=== PATIENT | male | born 2000 | race Caucasian/White ===

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

== ENCOUNTER → 2019-01-24 | Outpatient (CLI) | payer BC, SELFPAY ==
[2019-01-24 20:03] LABS: M R Staph aureus DNA By PCR Negative (Negative)
[2019-01-24 20:04] LABS: Probe Check PASS; Specimen Processing Control PASS; Staph aureus DNA By PCR POSITIVE (Negative)
== END | disposition home or self-care (01) ==
PROVIDERS: Referring Provider Podiatrist; Visit Provider Podiatrist
DX: L60.0 Ingrowing nail (principal)
CPT/HCPCS: 87070; 87075; 87077; 87186; 87205; 87640

== ENCOUNTER 2023-07-28 21:24 | Emergency (ER) | payer OTHER, SELFPAY ==
[2023-07-28 21:25] VITALS: BP 140/90; PULSE 100; RESP 18; TEMP 36.8; O2SAT 93; BMI 35.9
--- NOTE | 2023-07-28 21:32 | RAD_ITS ---
STUDY: X-RAY CHEST REASON FOR EXAM: Male, 22 years old. SOB TECHNIQUE: Single AP portable view of the chest. COMPARISON: None. FINDINGS: The lungs are clear and expanded. There is no demonstrated pleural abnormality. Normal size heart. Normal mediastinum and cintia. Normal visualized pulmonary arteries. Normal visualized aortic arch and descending thoracic aorta. Normal visualized thoracic spine. Normal visualized ribs, clavicles, and shoulders. There is no demonstrated abnormality of the visualized soft tissue structures of the upper abdomen. RAD/Chest 1 View (Portable) IMPRESSION: Normal x-ray examination of the chest. Electronically Signed: Parul Mcnally MD at 22:10 [facility] ,
[2023-07-28 21:51] VITALS: RESP 16; O2SAT 98
--- OUTSIDE RECORDS SUMMARY | 2023-07-28 22:03 | XMS RPT_ITS | CCD ---
Author Name Unknown Address [address] [place] [id number] Organization [facility] Care Team Providers Care Insurance Sales Agent Name Role Phone Unavailable Primary Care Provider Unavailabl e Allergies Allergy Classification Reported Allergen(s) Allergy Type Date of Onset Reaction(s) Facility (1 source) Amoxicillin Drug Allergy 04-25-2021 Rash [facility] Work Phone: Medications Completed/Discontinued Medications Medication Drug Class(es) Dates Sig (Normalized) Sig (Original) loratadine 10 mg oral tablet (1 source) take 1 tablet by th once daily loratadine (CLARITIN) 10 mg tablet Take 10 mg by mouth once daily. 0 Active Problems Problem Classification Problem Date Documented Da te Episodic/Chronic Nausea and vomiting (1 source) Diarrhea and vomiting; Translations: [Vomiting, unspecified] Episodic Results Test Name Value Interpretation Reference Range Facil ity Vital Signs Date Time Vital Sign Value Performing Clinician Linette burton 04-25-2021 12:53-0400 Body temperature 96.91 [degF] Praneeth Campos APRN.TEMPLATE REPRODUCTION TECHNICIAN Work Phone: [facility] 04-25-2021 12:53-0400 Body weight 100.7 kg Praneeth Campos APRN.TEMPLATE REPRODUCTION TECHNICIAN Work Phone: [facility] 04-25-2021 12:53-0400 Diastolic blood pressure 66 mm[Hg] Praneeth Campos APRN.TEMPLATE REPRODUCTION TECHNICIAN Work Phone: [facility] 04-25-2021 12:53-0400 Heart rate 90 /min Praneeth Campos APRN.TEMPLATE REPRODUCTION TECHNICIAN Work Phone: [facility] 04-25-2021 12:53-0400 Respiratory rate 18 /min Praneeth Campos APRN.TEMPLATE REPRODUCTION TECHNICIAN Work Phone: [facility] 04-25-2021 12:53-0400 SaO2% (BldA) [Mass fraction] 97 % Praneeth Campos TYLER Work Phone: [facility] 04-25-2021 12:53-0400 Systolic blood pressure 102 mm[Hg] Praneeht Campos TYLER Work Phone: [facility] Encounters Encounter Date Encounter Type Care Provider Facility Start: 04-25-2021 End: 04-25-2021 Patient encounter procedure Praneeth Campos TYLER Work Phone: [facility] Plan of Treatment Date Care Activity Detail Author Start: 03-11-2021 Influenza vaccination INFLUENZA (#1) [facility] Start: 11-18-2018 Urine microalbumin profile DTAP,TDAP ,TD (1 - Tdap) [facility] Start: 11-18-2017 HEPATITIS C SCREENING HEPATITIS C SC REENING [facility] Start: 11-18-2017 HIV SCREENING HIV SCREENING [facility] Start: 11-18-2013 PEDS TO ADULT TRANSI TION ANNUAL ASSESSMENT PEDS TO ADULT TRANSITION ANNUAL ASSESSMENT [facility] Start: 2011 Adult depression scr eening assessment DEPRESSION SCREENING [facility] Start: 2011 COVID-19 VACCINE (1) COVID-19 VACCIN E (1) [facility] Start: 2011 PEDS TO ADULT TRANSI TION INITIAL DISCUSSION PEDS TO ADULT TRANSITION INITIAL DISCUSSION [facility] Start: 11-18-2010 HPV VACCINE (1 - Mal e 2-dose series) HPV VACCINE (1 - Male 2-dose series) [facility] Start: 11-18-2009 MENINGOCOCCAL B: Con camouflage assembler based on risk (1 of 2 - Risk Bexsero 2-dose series) MENINGOCOCCAL B: Consider based on risk (1 of 2 - Risk Bexsero 2-dose series) [facility] Payers Date Payer Category Payer Private Health Insurance [facility] CHOICE PLUS [id number] 2020-Present HMO [id number] Social History Date Type Detail Facility Start: 04-25-2021 Tobacco smoking status NHIS Never sm presley [facility] Start: 04-25-2021 Tobacco use and exposure Never used [facility] Work Phone: Start: 2000 Sex Assigned At Not on file C [facility] Progress note 04-25-2021 Note Date & Type Note Facility 04-25-2021 Note HNO ID: [id number] Author: Praneeth Campos APRN.TEMPLATE REPRODUCTION TECHNICIAN Service: ? Author Type: Nurse Practitioner Type: Progress Notes Filed: 04/25/2021 2:15 PM Note Text: Subjective HPI HPI Boyd Clark is a 20 year old male who presents today for CC of vomiting, diarrhea fever for 7 days, vomiting gone, still intermittent fever. Seen at another [facility] multiple times, negative covid, told viral gastroenteritis. Denies abd pain, cp/sob, cough, congestion .Patient presents with: Fever: fluctuates x 7 days, 3 neg covid test No past medical history on file. No past surgical history on file. ALLERGIES Amoxicillin MEDICATIONS loratadine (CLARITIN) 10 mg tablet Take 10 mg by mouth once daily. No family history on file. Social History Tobacco Use - Smoking status: Never Smoker - Smokeless tobacco: Never Used Substance Use Topics - Alcohol use: Not on file - Drug use: Not on file ROS Objective Blood pressure 102/66, pulse 90, temperature 36.1 ?C (96.9 ?F), resp. rate 18, weight 100.7 kg (222 lb), SpO2 97 %. Physical Exam Constitutional: General: He is not in acute distress. Appearance: He is not toxic-appearing or diaphoretic. HENT: Head: Normocephalic and atraumatic. Mouth/Throat: Pharynx: No pharyngeal swelling, oropharyngeal exudate, posterior oropharyngeal erythema or uvula swelling. Cardiovascular: Rate and Rhythm: Normal rate and regular rhythm. Heart sounds: Normal heart sounds, S1 normal and S2 normal. Pulmonary: Effort: Pulmonary effort is normal. Breath sounds: Normal breath sounds. Abdominal: General: Bowel sounds are normal. Palpations: Abdomen is soft. Tenderness: There is no abdominal tenderness. Lymphadenopathy: Cervical: No cervical adenopathy. Right cervical: No superficial cervical adenopathy. Left cervical: No superficial cervical adenopathy. Neurological: Mental Status: He is alert and oriented to person, place, and time. Gait: Gait is intact. ASSESSMENT/PLAN: 1. Vomiting and diarrhea - ICD9: 787.03, 787.91, ICD10: R11.10, R19.7 Suspect viral gastro, improving Gentle hydration Brat diet F/u for continued symptoms Praneeth Campos APRN.[facility] History of Present illness Narrative 04-25-2021 Praneeth Campos APRN.[place]LEY - 04/25/2021 1:38 PM EDT Note Date & Type Note Facility 04-25-2021 History of Presen t illness Narrative Subjective HPI HPI Boyd Clark is a 20 year old male who presents today for CC of vomiting, diarrhea fever for 7 days, vomiting gone, still intermittent fever. Seen at another [facility] multiple times, negative covid, told viral gastroenteritis. Denies abd pain, cp/sob, cough, congestion .Patient presents with: Fever: fluctuates x 7 days, 3 neg covid test No past medical history on file. No past surgical history on file. ALLERGIES Amoxicillin MEDICATIONS loratadine (CLARITIN) 10 mg tablet Take 10 mg by mouth once daily. No family history on file. Social History Tobacco Use Smoking status: Never Smoker Smokeless tobacco: Never Used Substance Use Topics Alcohol use: Not on file Drug use: Not on file ROS Objective Blood pressure 102/66, pulse 90, temperature 36.1 C (96.9 F), resp. rate 18, weight 100.7 kg (222 lb), SpO2 97 %. Physical Exam Constitutional: General: He is not in acute distress. Appearance: He is not toxic-appearing or diaphoretic. HENT: Head: Normocephalic and atraumatic. Mouth/Throat: Pharynx: No pharyngeal swelling, oropharyngeal exudate, posterior oropharyngeal erythema or uvula swelling. Cardiovascular: Rate and Rhythm: Normal rate and regular rhythm. Heart sounds: Normal heart sounds, S1 normal and S2 normal. Pulmonary: Effort: Pulmonary effort is normal. Breath sounds: Normal breath sounds. Abdominal: General: Bowel sounds are normal. Palpations: Abdomen is soft. Tenderness: There is no abdominal tenderness. Lymphadenopathy: Cervical: No cervical adenopathy. Right cervical: No superficial cervical adenopathy. Left cervical: No superficial cervical adenopathy. Neurological: Mental Status: He is alert and oriented to person, place, and time. Gait: Gait is intact. ASSESSMENT/PLAN: 1. Vomiting and diarrhea - ICD9: 787.03, 787.91, ICD10: R11.10, R19.7 Suspect viral gastro, improving Gentle hydration Brat diet F/u for continued symptoms Praneeth Campos APRN.TEMPLATE REPRODUCTION TECHNICIAN documented in this encounter [facility] Evaluation note Note Date & Type Note Facility documented in this encounter [facility] Summary Purpose Family History No Family History Records Found Advance Directives No Advanced Directives Records Found Additional Source Comments Source Comments (unrecognize d section and content) In the event this informatio n is protected by the Federal Confidentiality of Alcohol and Drug Abuse Patient Records regulations: The Federal rules restrict any use of the information to criminally investigate or prosecute any alcohol or drug abuse patient.[facility] Reason for Visit (unrecogniz ed section and content) (unrecognized sect ion and content) No Status Records Found INFORMATION SOURCE (unrecogn ized section and content) FOR RECORDS PERTAINING TO PATIENTS WHO ARE OR HAVE BEEN ENROLLED IN A CHEMICAL DEPENDENCY/SUBSTANCEABUSE PROGRAM, SOME INFORMATION MAY BE OMITTED. This clinical summary was aggregated from multiple sources. Caution should be exercised in using it in the provision of clinical care. This summary normalizes information from multiple sources, and as a consequence, information in this document may materially change the coding, format and clinical context of patient data. In addition, data may be omitted in some cases. CLINICAL DECISIONS SHOULD BE BASED ON THE PRIMARY CLINICAL RECORDS. [facility]. provides no warranty or guarantee of the accuracy or completeness of information in this document.
--- NOTE | 2023-07-28 22:38 | ED.VIS.DYS ---
HPI History of Present Illness Chief Complaint: Shortness of Breath Informant: patient and family Narrative Narrative: 22-year-old male history of environmental allergies (usually takes loratadine today Anni) presenting with cough and dyspnea. Patient states last night and tonight he developed some burning in his chest chest tightness and coughing to the point of posttussive emesis. He is not a smoker or vapor. 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 He states that he has not had a diagnosis of asthma in the past. No rashes. He states this typically allergy Symptoms include watery eyes and runny nose which she has not had. Cough has been nonproductive. No fever. He states he does not feel sick. During the day he states he did not have any symptoms. He does note that in the past he has had several episodes where he has had to get up out of bed and walk around and his symptoms have abated. [facility] Medical History Seasonal allergies Home Medications prednisone 20 mg tablet 60 mg (3 x 20 mg) PO DAILY #12 TABLETS 07/28/23 [Rx Last Taken Unknown] Allergy/AdvReac Type Severity Reaction Status Date / Time amoxicillin Allergy Mild Rash Verified 07/28/23 21:28 Environmental Allergies: Allergy Mild RUNNY NOSE Verified 07/28/23 21:28 Uncoded Social History Smoking Status: Never smoker ROS [facility] ED Constitutional Constitutional ED: Denies chills, fever(s) or weight loss Eyes Eyes: Denies change in vision or diplopia ENT ENT ED: Denies ear pain, rhinorrhea or sore throat Cardiovascular Cardiovascular: Denies chest pain, orthopnea, palpitations or racing heartbeat Respiratory/Chest Respiratory/Chest: Reports cough, dyspnea and dyspnea on exertion; Denies orthopnea Gastrointestinal Gastrointestinal: Denies abdominal pain, diarrhea, nausea or vomiting Genitourinary Genitourinary ED: Denies dysuria, hematuria or urinary frequency Musculoskeletal Musculoskeletal: Denies arthralgias or myalgias Integumentary Denies abscess or rash Neurologic Neurologic: Denies headache(s) or weakness Psychiatric Psychiatric: Denies anxiety, depression, suicidal ideation or suicidal thoughts Endocrine Endocrinology: Denies polydipsia, polyphagia or polyuria Allergic/Immunologic Allergic/Immunologic ED: Denies mouth swelling, tongue swelling or urticaria EXAM Physical Exam Const Vital Signs: 07/28/23 21:25 07/28/23 21:51 07/28/23 21:51 Temperature 98.2 F Temperature Source Temporal Pulse Rate 100 Respiratory Rate 18 16 Respiratory Effort Respiratory Depth Respiratory Pattern Blood Pressure 140/90 H Blood Pressure Mean 106 Pulse Ox 93 98 Oxygen Delivery Method Room Air Room Air Room Air 07/28/23 21:51 07/28/23 22:45 Temperature Temperature Source Pulse Rate 101 H Respiratory Rate 16 Respiratory Effort Short of Breath Respiratory Depth Normal Respiratory Pattern Normal Normal Blood Pressure Blood Pressure Mean Pulse Ox Oxygen Delivery Method Positive well nourished and well developed General Appearance ED: well developed HEENT Reports normocephalic, head/scalp atraumatic and moist mucous membranes Eyes PERRL and EOMs intact bilaterally Neck no lymphadenopathy, supple and no JVD Resp normal respiratory effort Auscultation: wheezes expiratory wheezes, inspiratory wheezes and throughout Cardio regular rate, regular rhythm and no murmurs GI normal to inspection, nondistended, normoactive bowel sounds and non-tender Palpation: soft Back/Spine no CVA tenderness and normal ROM Extremity normal to inspection General Extremety ED: Negative for edema General Extremity: Negative for edema Neuro oriented x3 and CN's II-XII intact bilaterally Sensorium / Orientation: alert Motor Exam: strength 5/5 throughout Psych mental status grossly normal Mood & Affect: Negative for depressed or tearful Skin no rashes or lesions noted and no wounds MDM MDM MDM Narrative Medical decision making narrative: My independent interpretation of the chest x-ray is no acute process. Clinically the patient has bronchospasm. He works in a chemical factory. He has a history of allergies. He notes some episodes recently but no need for treatment or evaluation until tonight. Patient demonstrated improvement on lung auscultation and symptoms after DuoNeb and albuterol. He also received a dose of prednisone. We will do albuterol MDI teaching as well as a prescription for prednisone. He is to follow up with pulmonology or establish primary care. He may need further evaluation such as pulmonary function testing. He notes understanding of plan Radiography Diagnostic Testing: Clinical Impression(s) from Imaging Studies Chest X-Ray 07/28/23 21:32 IMPRESSION: Normal x-ray examination of the chest. Electronically Signed: Parul Mcnally MD at 22:10 EST , Discharge Plan Triage Chief Complaint: Shortness of Breath ED Provider: Sumit Medina Dx/Rx/DC Orders Clinical Impression: Acute dyspnea, Acute bronchospasm Instructions: ED Bronchospasm (Adult) Prescriptions: New prednisone 20 mg tablet 60 mg PO DAILY Qty: 12 0RF Primary Care Provider: Care Physician,No Primary Referrals: Jay Headley DO [Med Staff - Active Staff] - As soon as possible Care Physician,No Primary [Primary Care Provider] - Activity Restrictions/Additional Instructions: Albuterol 3 to 4 puffs into the chamber every 3 hours while awake over the next several days. If you are worsening or have concerns please return to emergency Disposition Disposition: Home, Self Care Capacity Legal Telephone Operator Receptionist Reflex Medical hold order details:: IF a medical hold is selected below, a suggested order for a MEDICAL HOLD will reflex upon signing the document. Next of kin: [place] law dictates a PRIORITY LIST for identifying legal decision-maker/legal next of kin in the following order (LNOK): 1st: The patient?s legal guardian, if any 2nd: The patient's spouse (if status is questionable, consult Risk Management) 3rd: The patient?s adult child(wesley) (majority, if multiple children) 4th: The patient?s parents 5th: The patient?s adult siblings (majority, if multiple children siblings)
[2023-07-28 22:45] VITALS: PULSE 101; RESP 16
[2023-07-28] MEDS: Albuterol 2.5 MG/3 ML VIAL.NEB. INHALATION (22:45)
[2023-07-28] MEDS: Ipratropium/Albuterol Sulfate 3 ML AMPUL.NEB INHALATION (22:45)
[2023-07-28] MEDS: predniSONE 20 MG Tablet 60 MG PO (23:08)
--- NOTE | 2023-07-28 23:10 | CPS ---
x1 Albuterol given to pt. in ER as well
[2023-07-28 23:56] VITALS: BP 110/74; PULSE 96; RESP 16; O2SAT 91
[2023-07-29] MEDS: Albuterol Sulfate 8 gm Inhaler (60 puffs) 2 PUFF INHALATION (00:03)
[2023-07-29] MEDS: INHALER, ASSIST DEVICES 1 EACH SPACER INHALATION (00:04)
== END 2023-07-29 00:15 | disposition home or self-care (01) ==
PROVIDERS: Emergency Provider Emergency Medicine; Visit Provider Emergency Medicine
DX: J98.01 Acute bronchospasm (principal); R06.00 Dyspnea, unspecified; R11.10 Vomiting, unspecified; J30.2 Other seasonal allergic rhinitis
CPT/HCPCS: 71045; 94640; 94760; 99282

== ENCOUNTER → 2023-08-31 | Outpatient (CLI) | payer OTHER, SELFPAY ==
--- OUTSIDE RECORDS SUMMARY | 2023-08-31 08:51 | XMS RPT_ITS | CCD ---
Author Name Unknown Address [address] [place] [address] Organization [facility] Care Team Providers Care Plate Printer Name Role Phone Unavailable Primary Care Provider Unavailabl e Allergies Allergy Classification Reported Allergen(s) Allergy Type Date of Onset Reaction(s) Facility (1 source) Amoxicillin Drug Allergy 04-25-2021 Rash [facility] Work Phone: Medications Completed/Discontinued Medications Medication Drug [...] 12:53-0400 Body temperature 96.91 [degF] Praneeth Campos APRN.PHOTOGRAPHER MODEL Work Phone: [facility] 04-25-2021 12:53-0400 Body weight 100.7 kg Praneeth Campos APRN.PHOTOGRAPHER MODEL Work Phone: [facility] 04-25-2021 12:53-0400 Diastolic blood pressure 66 mm[Hg] Praneeth Campos APRN.PHOTOGRAPHER MODEL Work Phone: [facility] 04-25-2021 12:53-0400 Heart rate 90 /min Praneeth Campos APRN.PHOTOGRAPHER MODEL Work Phone: [facility] 04-25-2021 12:53-0400 Respiratory rate 18 /min Praneeth Campos APRN.PHOTOGRAPHER MODEL Work Phone: [facility] 04-25-2021 12:53-0400 SaO2% (BldA) [Mass fraction] 97 % Praneeth Campos TYLER Work Phone: [facility] 04-25-2021 12:53-0400 Systolic blood pressure 102 mm[Hg] Praneeth Campos TYLER Work Phone: [facility] Encounters Encounter Date Encounter Type Care Provider Facility Start: 04-25-2021 End: 04-25-2021 Patient encounter procedure Praneeth Campos TYLER Work Phone: [facility] Plan of Treatment Date Care Activity Detail Author Start: 03-11-2021 Influenza vaccination INFLUENZA (#1) [facility] Start: 11-18-2018 Urine microalbumin profile DTAP,TDAP ,TD (1 - Tdap) [facility] Start: 11-18-2017 HEPATITIS C SCREENING HEPATITIS C SC REENING [facility] Start: 11-18-2017 HIV SCREENING HIV SCREENING [facility] Start: 11-18-2013 PEDS TO ADULT TRANSI TION ANNUAL ASSESSMENT PEDS TO ADULT TRANSITION ANNUAL ASSESSMENT [facility] Start: 2011 Adult depression scr eening assessment DEPRESSION SCREENING [facility] Start: 2011 COVID-19 VACCINE (1) COVID-19 VACCIN E (1) [facility] Start: 2011 PEDS TO ADULT TRANSI TION INITIAL DISCUSSION PEDS TO ADULT TRANSITION INITIAL DISCUSSION [facility] Start: 11-18-2010 HPV VACCINE (1 - Mal e 2-dose series) HPV VACCINE (1 - Male 2-dose series) [facility] Start: 11-18-2009 MENINGOCOCCAL B: Con director of patient safety based on risk (1 of 2 - Risk Bexsero 2-dose series) MENINGOCOCCAL B: Consider based on risk (1 of 2 - Risk Bexsero 2-dose series) [facility] Payers Date Payer Category Payer Private Health Insurance [facility] CHOICE PLUS [id number] 2020-Present HMO [id number] Social History Date Type Detail Facility Start: 04-25-2021 Tobacco smoking status NHIS Never sm presley [facility] Start: 04-25-2021 Tobacco use and exposure Never used [facility] Work Phone: Start: 2000 Sex Assigned At Not on file C [facility] Progress note 04-25-2021 Note Date & Type Note Facility 04-25-2021 Note HNO ID: [id number] Author: Praneeth Campos APRN.PHOTOGRAPHER MODEL Service: ? Author Type: Nurse Practitioner Type: Progress Notes Filed: 04/25/2021 2:15 PM Note Text: Subjective HPI HPI Boyd Clark is a 20 year old male who presents today for CC of vomiting, diarrhea fever for 7 days, vomiting gone, still intermittent fever. Seen at another [facility] care multiple times, negative covid, told viral [...] F/u for continued symptoms Praneeth Campos APRN.[facility] History of Present illness Narrative 04-25-2021 Praneeth Campos APRN.[place] - 04/25/2021 1:38 PM EDT Note Date & Type Note Facility 04-25-2021 History of Presen t illness Narrative Subjective HPI HPI Boyd Clark is a 20 year old male who presents today for CC of vomiting, diarrhea fever for 7 days, vomiting gone, still intermittent fever. Seen at another [facility] care multiple times, negative covid, told viral [...] diet F/u for continued symptoms Praneeth Campos APRN.PHOTOGRAPHER MODEL documented in this encounter [facility] Evaluation note Note Date & Type Note Facility documented in this encounter [facility] Summary Purpose Family History No Family History [...] or prosecute any alcohol or drug abuse patient.[facility] Reason for Visit (unrecogniz ed section and [...] BE BASED ON THE PRIMARY CLINICAL RECORDS. [employer] [facility]. provides no warranty or guarantee of the accuracy or completeness of information in this document.
== END | disposition home or self-care (01) ==
LOC: PSN 08:10
PROVIDERS: Referring Provider Internal Medicine Critical Care Medicine; Visit Provider Internal Medicine Critical Care Medicine
DX: R06.00 Dyspnea, unspecified (principal)
CPT/HCPCS: 94060; 94726; 94729